=== PATIENT | male | born 1925 | race Caucasian/White ===

== ENCOUNTER 2016-11-25 19:08 | Inpatient (IN) | payer MEDICARE, MEDICAID ==
[~2016-11-25] VITALS: Ht 167.6 cm; Wt 57.3 kg
[2016-11-25] MEDS ORDERED: CEFU250T58 JT (19:27)
[2016-11-25] MEDS ORDERED: ASCO-360 JT (19:27)
[2016-11-25] MEDS ORDERED: AMIO400T4 JT (19:27)
[2016-11-25] MEDS ORDERED: LORA0.5T2 JT (19:27)
[2016-11-25] MEDS ORDERED: METR500 JT (19:27)
[2016-11-25] MEDS ORDERED: PANT40TA25 JT (19:27)
[2016-11-25] MEDS ORDERED: FOLI1 JT (19:27)
[2016-11-25] MEDS ORDERED: VITAD1000 JT (19:27)
[2016-11-25] MEDS ORDERED: ENOX40DI9 SQ (19:27)
[2016-11-25] MEDS ORDERED: BISA10S PR (19:27)
[2016-11-25] MEDS ORDERED: ACET-2247 JT (19:27)
[2016-11-25] MEDS ORDERED: MULT-71 JT (19:27)
[2016-11-25] MEDS ORDERED: IPRA3AMP4 NEB (19:27)
[2016-11-25] MEDS ORDERED: FE PR (19:27)
[2016-11-25] MEDS ORDERED: AMIO200T44 JT (19:30)
[2016-11-25 20:43] LABS: BASOPHILS % (AUTO) 0.2 % (0.0-2.0); EOSINOPHILS % (AUTO) 1.2 % (1.0-6.0); HEMATOCRIT 40.1 % (41-53); HEMOGLOBIN 12.4 g/dL (13.5-17.5); LYMPHOCYTES # (AUTO) 1.7 K/uL (1.0-4.8); LYMPHOCYTES % (AUTO) 19.5 % (22.0-44.0); MEAN CORPUSCULAR HEMOGLOBIN 29.3 pg (26.0-34.0); MEAN CORPUSCULAR HGB CONC 31.1 G/dL (31.0-37.0); MEAN CORPUSCULAR VOLUME 94 fL (80-100); MONOCYTES # (AUTO) 0.1 K/uL (0.1-1.0); MONOCYTES % (AUTO) 0.9 % (2.0-9.0); NEUTROPHILS # (AUTO) 6.9 K/uL (1.8-7.7); NEUTROPHILS % (AUTO) 78.2 % (40.0-70.0); PLATELET COUNT (AUTO) 461 K/uL (150-450); RED BLOOD CELL COUNT(AUTO) 4.25 MIL/uL (4.50-5.90); RED CELL DISTRIBUTION WIDTH 15.4 % (11.5-14.5); WHITE BLOOD COUNT (AUTO) 8.9 K/uL (4.5-11.0)
[2016-11-25] MEDS ORDERED: SODIUM CHLORIDE 0.9% 2,000 ML IV ONE (20:45)
[2016-11-25] MEDS ORDERED: NOREPINEPHRINE 4 MG/D5%-WATER 250 ML IV PRN (20:45)
[2016-11-25] MEDS ORDERED: CefTRIAXone 1 GM/DEXTROSE 50 ML IV ONE (20:45)
[2016-11-25 20:48] LABS: ABG A-A DIFF O2 611.9 mmHg (10-20.0); ABG BASE EXCESS -15.7 mmol/L (-2.0-3.0); ABG HCO3 12.6 mmol/L (22.0-26.0); ABG OXYHEMOGLOBIN 75.9 % (94.0-100.0); ABG PCO2 45 mmHg (35-45)
[2016-11-25 20:49] LABS: ABG PH 7.105 (7.35-7.450)
[2016-11-25 20:50] LABS: ALLEN TEST, BLOOD GAS Positive; IPAP, BG 14 cm H2O
[2016-11-25 20:55] LABS: ANION GAP 19 mmol/L (8-16); CALCIUM, TOTAL 8.7 mg/dL (8.8-10.5); CARBON DIOXIDE 19 mmol/L (22-29); CHLORIDE 101 mmol/L (98-107); CREATININE 1.71 mg/dL (0.60-1.30); GLOMERULAR FILTR. RATE CALC 38 mL/min (>60); POTASSIUM 4.4 mmol/L (3.5-5.1); SODIUM SERUM 139 mmol/L (136-145); UREA NITROGEN, BLOOD 37 mg/dL (7-18)
[2016-11-25 20:57] LABS: APPEARANCE,URINE CLEAR (CLEAR); GLUCOSE, URINE (UA) NEGATIVE (NEGATIVE); KETONES,URINE NEGATIVE (NEGATIVE); LEUKOCYTE ESTERASE ,URINE NEGATIVE (NEGATIVE); OCCULT BLOOD,URINE SMALL (NEGATIVE); PROTEIN,URINE NEGATIVE (NEGATIVE)
[2016-11-25 20:58] LABS: ADD UA MICROSCOPIC YES
[2016-11-25 21:00] LABS: INR 1.4 (0.9-1.1); PROTHROMBIN TIME 14.3 SEC (9.4-11.6)
[2016-11-25] MEDS ORDERED: SODIUM BICARBONATE [ADULT] 8.4% 50 MEQ/50 ML SYRINGE IVP ONE (21:00)
[2016-11-25 21:02] LABS: SQUAMOUS EPITHELIAL CELL,UR Few /LPF (None Seen)
[2016-11-25 21:08] LABS: B-TYPE NATRIURETIC PEPTIDE 65 pg/mL (0-100)
[2016-11-25 21:20] LABS: LACTIC ACID 11.8 mmol/L (0.4-2.0)
[2016-11-25] MEDS ORDERED: SODIUM CHLORIDE 0.9% 1,000 ML IV ONE (21:30)
[2016-11-25] MEDS ORDERED: ONDANSETRON HCL 4 MG/2 ML VIAL IVP PRN (21:45)
[2016-11-25] MEDS ORDERED: IPRATROPIUM BROMIDE 0.5 MG/2.5 ML NEB SOLUTION NEB ONE (21:45)
[2016-11-25] MEDS ORDERED: POTASSIUM CHL 20 MEQ/0.45% NS 1,000 ML IV ONE (21:45)
[2016-11-25] MEDS ORDERED: 0.9% SODIUM CHLORIDE 10 ML SYRINGE IVP PRN (21:45)
[2016-11-25] MEDS ORDERED: ALBUTEROL SULFATE 5 MG/ML 20 ML NEB SOLN [BULK] NEB ONE (21:45)
[2016-11-25 21:59] LABS: ALANINE AMINOTRANSFERASE 29 U/L (12-78); ASPARTATE AMINOTRANSFERASE 38 U/L (15-37); BILIRUBIN,TOTAL 0.3 mg/dL (0.1-1.0); CREATINE KINASE, TOTAL 135 U/L (39-308); TOTAL PROTEIN, SERUM 5.7 g/dL (6.4-8.2)
[2016-11-25] MEDS ORDERED: 0.9% SODIUM CHLORIDE 5 ML NEB SOLUTION NEB ONE (22:02)
[2016-11-25 22:08] LABS: CREATINE KINASE MB 9.5 ng/mL (0-5)
[2016-11-25] MEDS ORDERED: SODIUM CHLORIDE 0.9% 1,000 ML IV SCH (22:30)
[2016-11-25] MEDS ORDERED: BISACODYL 10 MG RECTAL RECTAL SUPPOSITORY PR PRN (22:30)
[2016-11-25] MEDS ORDERED: ACETAMINOPHEN 325 MG TABLET PO PRN (22:30)
[2016-11-25 22:36] LABS: REFLEX LACTIC ACID? YES YES
[2016-11-25] MEDS: IPRATROPIUM BROMIDE 0.5 MG/2.5 ML NEB SOLUTION NEB SCH (22:39)
[2016-11-25] MEDS: ALBUTEROL SULFATE 2.5 MG/0.5 ML NEB SOLUTION NEB SCH (22:40)
[2016-11-25 22:45] LABS: PROCALCITONIN (PCT) 8.47 ng/mL (<0.50)
[2016-11-25] MEDS: MetroNIDAZOLE 500 MG/NACL 100 ML IV SCH (22:45)
[2016-11-25] MEDS ORDERED: VANCOMYCIN HCL 1 GM/D5% WATER 200 ML IV ONE (23:00)
[2016-11-26 00:20] VITALS: BP 66/38
[2016-11-26] MEDS ORDERED: SODIUM CHLORIDE 0.9% 250 ML IV ONE ×2 (00:26)
[2016-11-26] MEDS: PIPERACILLIN/TAZO 3.375 GM/D5W 50 ML IV SCH ×2 (00:27→05:39)
[2016-11-26] MEDS ORDERED: VASOPRESSIN 100 UNITS in DEXTROSE 5%-WATER 245 ML IV PRN (01:53)
[2016-11-26] MEDS ORDERED: PHENYLEPHRINE 200 MG/D5%-WATER 250 ML IV PRN (01:53)
[2016-11-26] MEDS: ALBUTEROL SULFATE 2.5 MG/0.5 ML NEB SOLUTION NEB SCH (02:58)
[2016-11-26] MEDS: IPRATROPIUM BROMIDE 0.5 MG/2.5 ML NEB SOLUTION NEB SCH (02:59)
[2016-11-26] MEDS ORDERED: NOREPINEPHRINE 4 MG/D5%-WATER 250 ML IV PRN (03:11)
[2016-11-26 04:00] VITALS: BP 60/35
[2016-11-26 04:08] VITALS: BP 64/37
[2016-11-26] MEDS: MetroNIDAZOLE 500 MG/NACL 100 ML IV SCH (05:40)
[2016-11-26 05:51] LABS: ALBUMIN 1.6 g/dL (3.4-5.0); BILIRUBIN,TOTAL 0.4 mg/dL (0.1-1.0); CALCIUM, TOTAL 7.5 mg/dL (8.8-10.5); CREATININE 1.87 mg/dL (0.60-1.30); TOTAL PROTEIN, SERUM 4.5 g/dL (6.4-8.2)
[2016-11-26 06:10] LABS: EOSINOPHILS % (AUTO) 0.4 % (1.0-6.0); HEMATOCRIT 37.6 % (41-53); HEMOGLOBIN 11.7 g/dL (13.5-17.5); LYMPHOCYTES # (AUTO) 0.7 K/uL (1.0-4.8); MEAN CORPUSCULAR HEMOGLOBIN 29.4 pg (26.0-34.0); MEAN CORPUSCULAR HGB CONC 31.2 G/dL (31.0-37.0); MEAN CORPUSCULAR VOLUME 94 fL (80-100); MONOCYTES % (AUTO) 1.3 % (2.0-9.0); NEUTROPHILS # (AUTO) 1.7 K/uL (1.8-7.7); NEUTROPHILS % (AUTO) 71.3 % (40.0-70.0); PLATELET COUNT (AUTO) 373 K/uL (150-450); RED BLOOD CELL COUNT(AUTO) 3.99 MIL/uL (4.50-5.90); RED CELL DISTRIBUTION WIDTH 15.8 % (11.5-14.5)
[2016-11-26 06:43] LABS: WHITE BLOOD COUNT (AUTO) 3.6 K/uL (4.5-11.0)
[2016-11-26] MEDS ORDERED: VANCOMYCIN HCL 1 GM/D5% WATER 200 ML IV SCH (08:00)
[2016-11-26] MEDS ORDERED: HEPARIN SODIUM,PORCINE 5,000 UNITS/ML VIAL SQ SCH (09:00)
[2016-11-26] MEDS ORDERED: PANTOPRAZOLE SODIUM 40 MG/VIAL IVP SCH (09:00)
[2016-11-26] MEDS ORDERED: DOCUSATE SODIUM 100 MG CAPSULE PO SCH (09:00)
[2016-11-26] MEDS ORDERED: VANCOMYCIN HCL 1 GM/D5% WATER 200 ML IV PRN (10:00)
[2016-11-26] MEDS ORDERED: PIPERACILLIN SODIUM/TAZOBACTAM 2.25 GM in DEXTROSE 5%-WATER 50 ML IV SCH (12:00)
== END 2016-11-26 10:15 | disposition expired | DRG 871 ==
LOC: EMS 19:11 → ICU 21:57
PROVIDERS: ADMIT Internal Medicine; ATTEND Internal Medicine
PROC: 5A09357 Assistance with Respiratory Ventilation, Less than 24 Consecutive Hours, Continuous Positive Airway Pressure (ICD-10-PCS; principal; 2016-11-25)
DX: A41.9 Sepsis, unspecified organism (principal); J69.0 Pneumonitis due to inhalation of food and vomit; J96.01 Acute respiratory failure with hypoxia; E43 Unspecified severe protein-calorie malnutrition; K85.90 Acute pancreatitis without necrosis or infection, unspecified; R65.21 Severe sepsis with septic shock; N17.9 Acute kidney failure, unspecified; R64 Cachexia; I48.91 Unspecified atrial fibrillation; L89.152 Pressure ulcer of sacral region, stage 2; R13.10 Dysphagia, unspecified; F03.90 Unspecified dementia, unspecified severity, without behavioral disturbance, psychotic disturbance, mood disturbance, and anxiety; R62.7 Adult failure to thrive; I50.9 Heart failure, unspecified; Z93.1 Gastrostomy status; Z74.01 Bed confinement status; Z79.899 Other long term (current) drug therapy
CPT/HCPCS: 36556; 51702; 70450; 71250; 72192; 74150; 82805; 83605; 84145; 87040; 87081; 93005; 94640; 94660; 96365; 96366; 96367; 96375; 99291; 99292; J0696; J2370; J2543; J3370; J3480; J3490; J7030; J7050; J7060